=== PATIENT | male | born 1965 | race Caucasian/White ===

== ENCOUNTER 2019-10-14 20:33 | Emergency (ER) | payer OTHER ==
[~2019-10-14] VITALS: Ht 165.1 cm; Wt 93.2 kg
[2019-10-14 20:40] VITALS: Ht 165.1 cm; Wt 93.2 kg
[2019-10-14] MEDS ORDERED: TOPROL XL25 MG PO (20:41)
[2019-10-14] MEDS ORDERED: HEP C MEDICATION (20:41)
[2019-10-14] MEDS ORDERED: HYDROCHLOROTHIA25 MG PO (20:41)
[2019-10-14] MEDS ORDERED: PROTONIX40 MG PO (21:05)
[2019-10-14] MEDS ORDERED: CATAPRES0.1 MG PO (21:24)
[2019-10-14 22:20] VITALS: BP 155/102
== END 2019-10-14 22:00 | disposition home or self-care (01) ==
LOC: D.ER 20:33
DX: I10 Essential (primary) hypertension (principal)

== ENCOUNTER 2019-11-08 22:04 | Observation (INO) | payer OTHER ==
[~2019-11-08] VITALS: Ht 165.1 cm; Wt 97.7 kg
[~2019-11-08 22:04] MED LIST: CATAPRES0.1 MG PO; HEP C MEDICATION; HYDROCHLOROTHIA25 MG PO; PROTONIX40 MG PO; TOPROL XL25 MG PO
[2019-11-08] MEDS ORDERED: TENORMIN25 MG PO (22:12)
[2019-11-09] VITALS (7 sets, daily range): BP systolic 113–138; BP diastolic 68–84; Ht 165.1 cm; Wt 97.7 kg
[2019-11-09 00:18] LABS: BASOPHILS 0.3 % (0-2); EOSINOPHILS 1.9 % (0-7); HEMATOCRIT 44.5 % (42.0-54.0); HEMOGLOBIN 15.7 g/dL (13.5-17.5); IMMATURE GRANULOCYTES 0.4 % (0-5); LYMPHOCYTES 27.7 % (15-50); MCH 31.6 pg (26.0-34.0); MCHC 35.3 g/dL (31.0-37.0); MCV 89.5 fL (80.0-100.0); MEAN PLATELET VOLUME 8.9 fL (7.4-10.4); MONOCYTES 9.2 % (2-11); NEUTROPHILS 60.5 % (40-80); PLATELET COUNT 244 10x3/uL (130-400); RBC 4.97 10x6/uL (4.20-6.10); RDW 13.2 % (11.5-14.5)
[2019-11-09 00:19] LABS: CALC OSMOLALITY 274 mosm/kg (275-300); CALCIUM 8.6 mg/dL (8.5-10.1); CARBON DIOXIDE 24.6 mmol/L (21.0-32.0); CHLORIDE - SERUM 102 mmol/L (98-107); GLUCOSE 115 mg/dL (74-106); POTASSIUM - SERUM 3.4 mmol/L (3.5-5.1); SODIUM 136 mmol/L (136-145); UREA NITROGEN 19 mg/dL (7-18); eGFR NON AFRICAN AMERICAN 82 mL/min (90-120)
[2019-11-09 00:34] LABS: ALBUMIN 3.6 g/dL (3.4-5.0); ALKALINE PHOSPHATASE 109 U/L (30-120); ALT (SGPT) 22 U/L (10-68); BILIRUBIN - TOTAL 0.73 mg/dL (0.2-1.3); PROTEIN - SERUM 8.1 g/dL (6.4-8.2)
--- NOTE | 2019-11-09 01:50 | NUR ---
REPORT GIVEN TO ANALI ON MED II
--- NOTE | 2019-11-09 03:04 | NUR ---
RECEIVED REPORT FROM NIKKY WALLER IN ER. ARRIVED TO FLOOR ON STRETCHER. ALERT AND ORIENTED X4. UP AD JOSELIN. IV TO LEFT WRIST WITH NS INFUSING AT 125CC/HR. NO REDNESS OR SWELLING TO SITE. LOWER EXTREMITIES HAVE LARGE BRIGHT RED RASN. PAINFUL TO TOUCH. LUNG SOUNDS CLEAR BILAERALLY. USES SMOKELESS TOBACCO AND REFUSES NICOTINE PATCH. ASSESSMENT COMPLETED.
[2019-11-09 05:55] LABS: APTT 25.1 SECONDS (22.8-39.4); INR 1.02 (0.85-1.17); PROTIME 13.3 SECONDS (11.6-15.0)
[2019-11-09 05:56] LABS: BASOPHILS 0.3 % (0-2); EOSINOPHILS 3.9 % (0-7); IMMATURE GRANULOCYTES 0.4 % (0-5); LYMPHOCYTES 31.6 % (15-50); MCH 31.7 pg (26.0-34.0); MCHC 34.9 g/dL (31.0-37.0); MCV 90.9 fL (80.0-100.0); MEAN PLATELET VOLUME 9.1 fL (7.4-10.4); MONOCYTES 10.4 % (2-11); NEUTROPHILS 53.4 % (40-80); PLATELET COUNT 221 10x3/uL (130-400); RBC 4.73 10x6/uL (4.20-6.10); RDW 13.3 % (11.5-14.5)
[2019-11-09 06:18] LABS: CALC OSMOLALITY 278 mosm/kg (275-300); CALCIUM 8.3 mg/dL (8.5-10.1); CARBON DIOXIDE 25.4 mmol/L (21.0-32.0); CHLORIDE - SERUM 104 mmol/L (98-107); CREATININE - SERUM 0.9 mg/dL (0.6-1.3); GLUCOSE 84 mg/dL (74-106); MAGNESIUM - SERUM 1.8 mg/dL (1.8-2.4); PHOSPHOROUS 3.9 mg/dL (2.5-4.9); POTASSIUM - SERUM 3.3 mmol/L (3.5-5.1); PRO BNP 46 pg/mL (0-125); SODIUM 139 mmol/L (136-145); UREA NITROGEN 18 mg/dL (7-18); eGFR NON AFRICAN AMERICAN > 90 mL/min (90-120)
[2019-11-09 06:25] LABS: WBC 9.1 10x3/uL (4.8-10.8)
--- NOTE | 2019-11-09 07:20 | NUR ---
RECIEVE REPORT. ALERT AND ORIENTED X4. LAYING IN BED WATCHING TV. IV INFUSING ORDERED. DENIES ANY OTHER NEEDS AT THIS TIME. CONTINUE PLAN OF CARE AND SAFETY PRECAUTIONS.
[2019-11-09 10:49] LABS: APPEARANCE CLEAR (CLEAR); BILIRUBIN NEGATIVE (NEGATIVE); COLOR YELLOW (YELLOW); GLUCOSE NEGATIVE (NEGATIVE); KETONE NEGATIVE (NEGATIVE); NITRITE NEGATIVE (NEGATIVE); PROTEIN NEGATIVE (NEGATIVE); UROBILINOGEN NORMAL (NORMAL)
[2019-11-09 16:52] LABS: COMPLEMENT C4 12.7 mg/dL (17.4-52.2)
--- NOTE | 2019-11-09 17:00 | NUR ---
ALERT AND ORIENTED X4. SHOWER AND LINEN CHANGE COMPLETE. SITTING ON SIDE OF BED. DENIES ANY NEEDS. SALINE LOCK LT WRIST IV PER . DENIES ANY NEEDS. CONTINUE PLAN OF CARE AND SAFETY PRECAUTIONS.
--- NOTE | 2019-11-09 22:47 | NUR ---
PT LYING IN BED AWAKE ALERT AND ORIENTED x4. NO SIGNS OR SYMPTOMS OF DISTRESS NOTED. RESPIRATIONS EVEN AND UNLABORED. UP AID JOSELIN. ABDOMEN IS SOFT TO PALPATION. CONTINENT OF BOWELL AND BLADDER. PT STATED LAST BOWELL MOVMENT WAS EARLIER TODAY. RASH NOTED TO LOWER LEGS BILATERLLY. NO COMPLAINTS OF PAIN AT THIS TIME. PT GOAL IS TO LERAN MORE ABOUT HIS DIAGNOSIS. PT ORDERED PIZZA AND IT HAS BEEN DELIVERED. PT ENCOUAGED TO CALL FOR HELP WHEN GETTING IN AND OUT OF BED. CALL LIGHT IS WITH IN REACH AND BED IS IN LOWEST POSITION. WILL CONTINUE TO MONITOR.
--- NOTE | 2019-11-09 22:57 | NUR ---
PT ON ROOM AIR. 74 SINUS RYTHUM ON TELEMETRY. WILL CONTINUE TO MONITOR
[2019-11-10] VITALS: BP 113/55
--- NOTE | 2019-11-10 01:12 | NUR ---
I have reviewed this patient and I concur with the Shift Assessment completed by the Licensed Practical Nurse today this shift.
[2019-11-10 04:00] VITALS: BP 118/58
[2019-11-10 05:39] LABS: BASOPHILS 0.3 % (0-2); HEMATOCRIT 43.9 % (42.0-54.0); HEMOGLOBIN 14.8 g/dL (13.5-17.5); IMMATURE GRANULOCYTES 0.6 % (0-5); LYMPHOCYTES 33.3 % (15-50); MCHC 33.7 g/dL (31.0-37.0); MONOCYTES 10.7 % (2-11); NEUTROPHILS 50.1 % (40-80); PLATELET COUNT 235 10x3/uL (130-400); RBC 4.77 10x6/uL (4.20-6.10); RDW 13.4 % (11.5-14.5)
[2019-11-10 06:06] LABS: CALC OSMOLALITY 283 mosm/kg (275-300); CALCIUM 8.4 mg/dL (8.5-10.1); CARBON DIOXIDE 24.3 mmol/L (21.0-32.0); CHLORIDE - SERUM 108 mmol/L (98-107); CREATININE - SERUM 0.8 mg/dL (0.6-1.3); GLUCOSE 108 mg/dL (74-106); POTASSIUM - SERUM 4.1 mmol/L (3.5-5.1); SODIUM 141 mmol/L (136-145); UREA NITROGEN 18 mg/dL (7-18); eGFR NON AFRICAN AMERICAN > 90 mL/min (90-120)
[2019-11-10 06:42] LABS: WBC 6.8 10x3/uL (4.8-10.8)
--- NOTE | 2019-11-10 08:24 | NUR ---
CALLED SX TO SEE IF I NEEDED TO HOLD LOVENOX THEY STATED TO CALL DR. MERCER. CALLED AND SPOKE WITH DR. MERCER AND HE STATES TO GIVE LOVENOX.
[2019-11-10 09:53] VITALS: BP 116/60
--- NOTE | 2019-11-10 10:50 | NUR ---
I have reviewed this patient and I concur with the Shift Assessment completed by the Licensed Practical Nurse today this shift.
[2019-11-10] MEDS ORDERED: VISTARIL50 MG PO (11:42)
--- NOTE | 2019-11-10 13:06 | NUR ---
CONSENTS ANDF EKG IN CHART. CHLORAPREP, STERILE GLOVES, AND SPECIMEN CONTAINER FROM LAB AT BEDSIDE.
--- NOTE | 2019-11-10 13:20 | NUR ---
DR. MERCER PERFORMED BILATERAL INCISION SKIN BIOPSIES AT BEDSIDE WITH LIDOCAINE INJECTION. SUTURES TO BACK OF BILATERAL CALVES AND HE STATES PT TO DO DRY DRESSING CHANGES AND TO F/U WITHH IM IN TWO WEEEKS.
--- NOTE | 2019-11-10 13:26 | NUR ---
SKIN BIOPSIES TAKEN TO LAB.
--- NOTE | 2019-11-10 14:16 | NUR ---
PT REFUSED FLU SHOT. TOBACCO QUITLINE FORM FILLED OUT AND FAXED. COPY GIVEN TO PT AND ORIGINAL PLACED IN CHART.
--- NOTE | 2019-11-10 14:19 | NUR ---
TELEMETRY HONORIO'Maximiliano.
--- NOTE | 2019-11-10 14:58 | NUR ---
LEFT WRIST 20G IV DC'D WITH CATH INTACT.
--- NOTE | 2019-11-10 15:20 | NUR ---
WOUND CARE TEACHING DONE WITH PT. DISCHARGE TEACHING DONE WITH PT. DISCHARGE COPY GIEN TO PT. PT HAS NO FURTHER QUESTIONS. CHART COPY SIGNED. PT STATES HE CALLED FOR HIS RIDE BUT DOES NOT KNOW WHAT TIME THEY WILL GET HERE TO PICK HIM UP. I VERBALIZED UNDERSTANDING.
--- NOTE | 2019-11-10 15:43 | NUR ---
PT TAKEN DOWN VIA WC AND LEFT WITH FRIEND IN PERSONAL VEHICLE.
--- NOTE | 2019-11-11 08:24 | MORECARE ---
CASE MANAGEMENT DISCHARGE SUMMARY PATIENT: JALIL MORGAN UNIT: [id number] ADM DATE: 11/09/19 AGE: 54 : 61 SEX: M ROOM/BED: D.2102 AUTHOR: ANSLEY LAZARO PHYSICIAN: REFERRING PHYSICIAN: TADEO HUERTA MD DATE OF SERVICE: 11/11/19 Discharge Plan Patient Name: JALIL MORGAN Facility: [facility]:[place] : 1965 Planned Disposition: Home Anticipated Discharge Date: 11/10/19 Discharge Date: 11/10/2019 Expected LOS: 1 Initial Reviewer: [email or web address] Initial Review Date: 11/11/2019 Generated: 11/11/19 9:23 am Patient Name: JALIL MORGAN Page [id number] at 0824 All edits/amendments must be made on the electronic document DICTATION DATE: 11/11/19822 MANUFACTURING CHIEF ENGINEER: SUDHA 11/11/19822 RPT#: [id number] DC DATE:11/10/19 STATUS: DIS IN [facility] [address] [place] [address] END OF REPORT
--- NOTE | 2019-11-11 16:30 | OP ---
PATIENT NAME: JALIL MORGAN MEDICAL RECORD: [id number] :61 LOCATION:D.M2 D.2101 ADMISSION DATE:11/09/19 SURGEON: ROBERT MERCER MD DATE OF OPERATION: 11/10/2019 PREOPERATIVE DIAGNOSIS: Rash of uncertain etiology involving both lower extremities distal to the knees. POSTOPERATIVE DIAGNOSIS: Rash of uncertain etiology involving both lower extremities distal to the knees. PROCEDURE: Incisional biopsies of the skin and subcutaneous tissues of the calves of both lower extremities with intermediate closure. SURGEON: Robert Mercer MD CORK INSULATOR: Coral Lorenzo BLOOD LOSS: Minimal. ANESTHESIA: Local. OPERATIVE COURSE: The patient was seen in his room. The procedure was performed in his bed. He was positioned prone. The posterior aspects of both thighs were sterilely prepped and draped. A local anesthetic was used to infiltrate the skin and subcutaneous tissues at the biopsy sites. Through the use of double curvilinear incisions, each of which was about 1.8 cm x 6 mm, I excised the skin and subcutaneous tissue making sure to include a portion of the diseased tissue with a portion of the grossly normal tissue. The specimens were sent to pathology in formalin. Subcutaneous flaps were created sharply. The subdermis was approximated with interrupted 3-0 Vicryls. The skin was approximated with multiple interrupted vertical mattress 3-0 nylons. Sterile dressings were applied. I will see the patient in my office in about 2 weeks to remove the sutures. TRANSINT:[id number] Voice Confirmation ID: [id number] DOCUMENT ID: [id number] ROBERT MERCER MD at 1630 CC: [id number] DICTATION DATE: 11/10/192058 DOPE MIXER: 11/11/19 0642 DIS IN 11/10/19 [facility] [address] [place] [address]
[2019-11-12 15:10] LABS: ANCA - ANTIMYELOPEROXIDASE <9.0 U/mL (0.0-9.0); ANCA - ANTIPROTEINASE 3 <3.5 U/mL (0.0-3.5); ANCA - ATYPICAL <1:20 titer (Neg:<1:20); ANCA - CYTOPLASMIC <1:20 titer (Neg:<1:20); ANCA - PERINUCLEAR <1:20 titer (Neg:<1:20)
== END 2019-11-10 15:44 | disposition home or self-care (01) ==
LOC: D.ER 22:04 → OBSVTIME 11-09 00:59 → D.M2 11-09 00:59
PROVIDERS: Family Medicine; ADMIT Internal Medicine Nephrology; ATTEND Internal Medicine Nephrology
DX: R21 Rash and other nonspecific skin eruption (principal); B19.20 Unspecified viral hepatitis C without hepatic coma; K21.9 Gastro-esophageal reflux disease without esophagitis; I10 Essential (primary) hypertension; N17.9 Acute kidney failure, unspecified; E87.1 Hypo-osmolality and hyponatremia; F17.203 Nicotine dependence unspecified, with withdrawal; G89.29 Other chronic pain